=== PATIENT | male | born 1980 | race Caucasian/White ===

== ENCOUNTER 2017-07-06 00:13 | Emergency (ER) | payer MEDICARE, OTHER ==
[~2017-07-06] VITALS: Ht 195.6 cm; Wt 113.4 kg
[2017-07-06] MEDS ORDERED: SEROQUEL50 MG PO (00:31)
== END 2017-07-06 02:01 | disposition home or self-care (01) ==
LOC: ED 00:13
DX: B34.9 Viral infection, unspecified (principal); K21.9 Gastro-esophageal reflux disease without esophagitis; Z88.5 Allergy status to narcotic agent; Z79.899 Other long term (current) drug therapy
CPT/HCPCS: 87081; 87502; 87880; 99283

== ENCOUNTER 2019-10-02 14:59 | Inpatient (IN) | payer MEDICARE, MEDICAID, OTHER ==
[~2019-10-02] VITALS: Ht 198.1 cm; Wt 97.1 kg
[~2019-10-02 14:59] MED LIST: SEROQUEL50 MG PO
--- NOTE | 2019-10-05 10:57 | EKG ---
[facility] [address] [facility] [place], [place] [address] Signed Normal sinus rhythm Normal ECG No previous ECGs available Confirmed by MILES DARDEN MD ([id number]) on 10/05/2019 10:57:13 AM Electronically Signed By: MILES DARDEN MD 10/05/19 1057 PATIENT NAME: INDY ARCOS JEAN CLAUDE Electrocardiogram DATE OF : 78 PHYSICIAN: MILES DARDEN MD REPORT #: [id number] REPORT IS CONFIDENTIAL AND NOT TO BE RELEASED WITHOUT AUTHORIZATION
[2019-10-05] MEDS ORDERED: AMLODIPINE BESYL5 MG PO (13:05)
[2019-10-06] MEDS ORDERED: OMEPRAZOLE20 MG PO (06:04)
[2019-10-06] MEDS ORDERED: PROMETHAZINE HC25 M1 PO (14:11)
== END 2019-10-05 13:45 | disposition home or self-care (01) | DRG 392 ==
LOC: ED 14:59 → CCU 21:54 → MS 10-04 17:42
PROVIDERS: ADMIT Internal Medicine
DX: A08.4 Viral intestinal infection, unspecified (principal); E87.2 Acidosis; E86.0 Dehydration; E83.42 Hypomagnesemia; I10 Essential (primary) hypertension; K21.9 Gastro-esophageal reflux disease without esophagitis; F39 Unspecified mood [affective] disorder; Z79.899 Other long term (current) drug therapy; Z20.828 Contact with and (suspected) exposure to other viral communicable diseases; Z88.5 Allergy status to narcotic agent
CPT/HCPCS: 36415; 36600; 51702; 51798; 71045; 71260; 80048; 80053; 80076; 81001; 82728; 82803; 83605; 83615; 83735; 83880; 84484; 85025; 85379; 86140; 87040; 87502; 93005; 93010; 99285-25; J0692; J0780; J1170; J1885; J2405; J2550; J3475; J7030; J7120; J7121; Q9967

== ENCOUNTER 2019-10-06 03:04 | Emergency (ER) | payer MEDICARE, MEDICAID, OTHER ==
[~2019-10-06] VITALS: Ht 198.1 cm; Wt 97.1 kg
[~2019-10-06 03:04] MED LIST changes: +AMLODIPINE BESYL5 MG PO
--- OUTSIDE RECORDS SUMMARY | 2019-10-06 03:06 | XMS ---
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 Kory has no Care Guidelines for this patient. [place] VISIT COUNT (12 MO.) 2 [facility] [place] TOTAL 2 NOTE: Visits indicate total known visits. ED/C VISIT TRACKING (12 MO.) 10/06/2019 03:[address] [facility] TYPE: Emergency COMPLAINT: - FLU SYMPTOMS 10/02/2019 15:00 [facility] TYPE: Emergency COMPLAINT: - SOB INPATIENT VISIT TRACKING (12 MO.) 10/02/2019 21:54 [facility] TYPE: Medical Surgical COMPLAINT: - PRESUMPTIVE COVID 19, LACTIC ACIDOSIS, [email or web address]
[2019-10-06] MEDS ORDERED: OMEPRAZOLE20 MG PO (06:04)
[2019-10-06] MEDS ORDERED: PROMETHAZINE HC25 M1 PO (14:11)
== END 2019-10-06 06:18 | disposition home or self-care (01) ==
LOC: ED 03:04
DX: K52.9 Noninfective gastroenteritis and colitis, unspecified (principal); K21.9 Gastro-esophageal reflux disease without esophagitis; I10 Essential (primary) hypertension; Z88.5 Allergy status to narcotic agent; Z79.899 Other long term (current) drug therapy
CPT/HCPCS: 80053; 83605; 83690; 85025; 96361; 96374; 96375; 99284-25; C9113; J2405; J7030

== ENCOUNTER 2019-10-06 11:55 | Emergency (ER) | payer MEDICARE, MEDICAID, OTHER ==
[~2019-10-06] VITALS: Ht 198.1 cm; Wt 97.5 kg
[~2019-10-06 11:55] MED LIST changes: +OMEPRAZOLE20 MG PO
--- OUTSIDE RECORDS SUMMARY | 2019-10-06 11:58 | XMS ---
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 Kory has no Care Guidelines for this patient. [place] VISIT COUNT (12 MO.) [address] [facility] TOTAL 3 NOTE: Visits indicate total known visits. ED/C VISIT TRACKING (12 MO.) 10/06/2019 11:55 [facility] TYPE: Emergency COMPLAINT: - FALL 10/06/2019 03:04 [facility] TYPE: Emergency COMPLAINT: - FLU SYMPTOMS 10/02/2019 15:00 [facility] TYPE: Emergency COMPLAINT: - SOB INPATIENT VISIT TRACKING (12 MO.) 10/02/2019 21:54 [facility] TYPE: Medical Surgical COMPLAINT: - PRESUMPTIVE COVID 19, LACTIC ACIDOSIS, [email or web address]
[2019-10-06] MEDS ORDERED: PROMETHAZINE HC25 M1 PO (14:11)
== END 2019-10-06 14:20 | disposition home or self-care (01) ==
LOC: ED 11:55
DX: J98.8 Other specified respiratory disorders (principal); R11.10 Vomiting, unspecified; K21.9 Gastro-esophageal reflux disease without esophagitis; I10 Essential (primary) hypertension; Z88.5 Allergy status to narcotic agent; Z79.899 Other long term (current) drug therapy
CPT/HCPCS: 71046; 96372; 99283-25; J2550

== ENCOUNTER 2019-12-15 21:01 | Emergency (ER) | payer MEDICARE ==
[~2019-12-15] VITALS: Ht 198.1 cm; Wt 97.5 kg
[~2019-12-15 21:01] MED LIST changes: +PROMETHAZINE HC25 M1 PO
== END 2019-12-15 23:02 | disposition home or self-care (01) ==
LOC: ED 21:01
DX: S93.402A Sprain of unspecified ligament of left ankle, initial encounter (principal); K21.9 Gastro-esophageal reflux disease without esophagitis; I10 Essential (primary) hypertension; E11.9 Type 2 diabetes mellitus without complications; Z88.5 Allergy status to narcotic agent; Z88.6 Allergy status to analgesic agent; Z79.899 Other long term (current) drug therapy; X58.XXXA Exposure to other specified factors, initial encounter
CPT/HCPCS: 73610; 99283-25

== ENCOUNTER 2020-01-10 08:01 | Emergency (ER) | payer MEDICARE ==
[~2020-01-10] VITALS: Ht 198.1 cm; Wt 97.5 kg
--- OUTSIDE RECORDS SUMMARY | 2020-01-10 08:04 | XMS ---
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 Kory has no Care Guidelines for this patient. Care History Medical/Surgical 10/07/2019 [facility] - PATIENT CONTACT NUMBER [phone] IS NOT THE CORRECT CONTACT NUMBER. - PATIENT NEEDS TO ESTABLISH CARE WITH A PROVIDER IN THE AREA. - [facility] IS UNABLE TO CONTACT PATIENT-PLEASE CONTACT CASE MANAGEMENT IF PATIENT IS SEEN IN THE ED DURING BUSINESS HOURS. E.D. VISIT COUNT (12 MO.) 5 [facility] TOTAL 5 NOTE: Visits indicate total known visits. ED/C VISIT TRACKING (12 MO.) 01/10/2020 08:01 [facility] TYPE: Emergency COMPLAINT: - VOMITING 12/15/2019 21:02 [facility] TYPE: Emergency COMPLAINT: - ANKLE INJURY DIAGNOSES: - Pain in right ankle and joints of right foot - Gastro-esophageal reflux disease without esophagitis - Allergy status to narcotic agent status - Allergy status to analgesic agent status - Type 2 diabetes mellitus without complications - Sprain of unspecified ligament of left ankle, initial encount - Essential (primary) hypertension - Other senior care (current) drug therapy - Exposure to other specified factors, initial encounter 10/06/2019 11:55 [facility] TYPE: Emergency COMPLAINT: - FALL DIAGNOSES: - Other senior care (current) drug therapy - Allergy status to narcotic agent status - Gastro-esophageal reflux disease without esophagitis - Cough - Vomiting, unspecified - Essential (primary) hypertension - Other specified respiratory disorders 10/06/2019 03:04 [facility] TYPE: Emergency COMPLAINT: - FLU SYMPTOMS DIAGNOSES: - Other senior care (current) drug therapy - Gastro-esophageal reflux disease without esophagitis - Essential (primary) hypertension - Allergy status to narcotic agent status - Unspecified abdominal pain - Noninfective gastroenteritis and colitis, unspecified 10/02/2019 15:00 [facility] TYPE: Emergency COMPLAINT: - SOB INPATIENT VISIT TRACKING (12 MO.) 10/02/2019 21:54 [facility] TYPE: Medical Surgical COMPLAINT: - PRESUMPTIVE COVID 19, LACTIC ACIDOSIS, DIAGNOSES: - Gastro-esophageal reflux disease without esophagitis - Gastro-esophageal reflux disease without esophagitis - Contact with and (suspected) exposure to other viral communic - Acidosis - Hypomagnesemia - Essential (primary) hypertension - Dehydration - Dehydration - Viral intestinal infection, unspecified - Acidosis - Unspecified mood [affective] disorder - Hypomagnesemia - Allergy status to narcotic agent status - Other senior care (current) drug therapy - Nausea with vomiting, unspecified - Essential (primary) hypertension - Unspecified mood [affective] disorder - Contact with and (suspected) exposure to other viral communic - Allergy status to narcotic agent status - Other senior care (current) drug therapy - Viral intestinal infection, unspecified [email or web address]
[2020-01-10] MEDS ORDERED: ONDANSETRON ODT8 MG PO (08:35)
== END 2020-01-10 08:58 | disposition home or self-care (01) ==
LOC: ED 08:01
DX: K52.9 Noninfective gastroenteritis and colitis, unspecified (principal); B34.9 Viral infection, unspecified; I10 Essential (primary) hypertension; E11.9 Type 2 diabetes mellitus without complications; Z20.828 Contact with and (suspected) exposure to other viral communicable diseases; Z88.5 Allergy status to narcotic agent; Z88.6 Allergy status to analgesic agent
CPT/HCPCS: 99283; C9803

== ENCOUNTER 2022-10-10 15:39 | Emergency (ER) | payer OTHER ==
[~2022-10-10] VITALS: Ht 198.1 cm; Wt 97.5 kg
[~2022-10-10 15:39] MED LIST changes: +ONDANSETRON ODT8 MG PO
[2022-10-10] MEDS ORDERED: BUSPIRONE HCL15 MG PO (16:30)
[2022-10-10] MEDS ORDERED: DEPAKOTE ER500 MG PO (16:30)
[2022-10-10] MEDS ORDERED: DRIZALMA SPRINK30 MG PO (16:30)
[2022-10-10] MEDS ORDERED: AVAPRO75 MG PO (16:31)
[2022-10-10] MEDS ORDERED: CELEBREX100 MG PO (16:31)
[2022-10-10] MEDS ORDERED: CRESTOR20 MG PO (16:33)
[2022-10-10] MEDS ORDERED: ONDANSETRON ODT8 MG PO (18:20)
[2022-10-10] MEDS ORDERED: CYCLOBENZAPRINE10 MG PO (18:20)
[2022-10-10 18:56] VITALS: BP 133/102
== END 2022-10-10 18:56 | disposition home or self-care (01) ==
LOC: ED 15:39
DX: S06.0X9A Concussion with loss of consciousness of unspecified duration, initial encounter (principal); S13.9XXA Sprain of joints and ligaments of unspecified parts of neck, initial encounter; W19.XXXA Unspecified fall, initial encounter; I10 Essential (primary) hypertension; E11.9 Type 2 diabetes mellitus without complications; Z88.5 Allergy status to narcotic agent; Z88.6 Allergy status to analgesic agent; Z79.899 Other long term (current) drug therapy
CPT/HCPCS: 70450; 72125; A9270